=== PATIENT | female | born 1980 | race Two or more races ===

== ENCOUNTER 2018-03-14 07:09 | Emergency (ER) | payer OTHER ==
[~2018-03-14] VITALS: Ht 177.8 cm; Wt 118.8 kg
[~2018-03-14 07:09] MED LIST: COLACE100 MG PO; NAPROXEN500 MG PO; TYLENOL-CODEINE1 TAB PO
[2018-03-14] MEDS ORDERED: ZITHROMAX TRI-500 MG PO (10:14)
[2018-03-14] MEDS ORDERED: TUSSI PRES-B L120 M1 PO (10:14)
[2018-03-14] MEDS ORDERED: MEDROLPACK PO (10:14)
== END 2018-03-14 10:22 | disposition home or self-care (01) ==
LOC: ER 07:09
DX: B34.9 Viral infection, unspecified (principal)

== ENCOUNTER 2019-06-15 07:11 | Outpatient (CLI) | payer OTHER ==
[~2019-06-15 07:11] MED LIST changes: +MEDROLPACK PO; +TUSSI PRES-B L120 M1 PO; +ZITHROMAX TRI-500 MG PO
== END 2019-06-15 15:00 | disposition home or self-care (01) ==
LOC: LAB 07:11
DX: R09.02 Hypoxemia (principal)

== ENCOUNTER 2022-01-28 08:48 | Day surgery (SDC) | payer OTHER ==
[~2022-01-28 08:48] MED LIST changes: +SYNTHROID75 MCG PO
== END 2022-01-28 20:08 | disposition home or self-care (01) ==
LOC: CIR.AMB 08:48
PROVIDERS: ATTEND Obstetrics & Gynecology Gynecologic Oncology
DX: D39.11 Neoplasm of uncertain behavior of right ovary (principal); E03.9 Hypothyroidism, unspecified

== ENCOUNTER 2024-04-30 13:10 | Inpatient (IN) | payer OTHER ==
[~2024-04-30] VITALS: Ht 177.8 cm; Wt 81.2 kg
[2024-04-30 14:59] LABS: ALBUMIN 2.8 gm/dL (3.4-5.0); BILIRUBIN TOTAL 0.23 mg/dL (0.3-1.2); CREATININE SERUM 0.69 mg/dL (0.55-1.02); GFR 92.86; GLOBULINA 4.4 G/DL (2.4-3.5); POTASSIUM 3.29 mEq/L (3.5-5.1); TOTAL PROTEIN 7.2 gm/dL (6.4-8.2)
[2024-04-30 15:01] LABS: PH,URINE 5.5 (5.0-8.0); URINE APPEARANCE Cloudy; URINE BILIRRUBIN Negative (NEGATIVE); URINE BLOOD Large; URINE COLOR Yellow; URINE GLUCOSE Negative (NEGATIVE); URINE KETONE Trace (NEGATIVE); URINE LEUKOCYTE Small; URINE NITRATE Negative; URINE PROTEIN 30 (NEGATIVE)
[2024-04-30 15:05] LABS: URINE BACTERIA 2477.1 uL (0.0-1933); URINE EPITHELIAL CELLS 57.8 uL (0.0-38.8); URINE RBC 115.4 uL (0.0-20.8)
[2024-04-30 15:11] LABS: HEMATOCRIT 35.4 % (36.0-45.00); HEMOGLOBIN 12.1 g/dL (12.0-15.00); MEAN CELL VOLUME 91.8 fL (80.00-100.00); MEAN CORPUSCULAR HEMOGLOBIN 31.4 pg (27.00-32.0); MEAN CORPUSCULAR HGB CONC 34.2 g/dl (32.0-36.0); PLATELET COUNT 331 K/uL (150-450); RED BLOOD COUNT 3.85 M/uL (4.00-6.00); RED CELL DISTRIBUTION WIDTH 13.2 % (11.5-14.5)
[2024-04-30] MEDS ORDERED: CEFTRIAXONE SODIUM 2,000 MG VIAL IV STA (15:35)
[2024-04-30] MEDS ORDERED: 0.9 % SODIUM CHLORIDE 1,000 ML IV STA (15:37)
[2024-04-30] MEDS ORDERED: CEFTRIAXONE SODIUM 2,000 MG in 0.9 % SODIUM CHLORIDE 100 ML IV SCH (21:34)
[2024-04-30] MEDS ORDERED: FAMOTIDINE/PF 20 MG in 0.9 % SODIUM CHLORIDE 100 ML IV SCH (21:34)
[2024-04-30] MEDS ORDERED: KETOROLAC TROMETHAMINE 30 MG VIAL IV PRN (21:45)
[2024-04-30] MEDS ORDERED: 0.9 % SODIUM CHLORIDE 1,000 ML IV SCH (21:45)
[2024-04-30] MEDS ORDERED: TRAMADOL HCL 50 MG TABLET PO PRN (22:30)
[2024-04-30] MEDS ORDERED: MORPHINE SULFATE 4 MG/ML CARTRIDGE IV PRN (22:30)
[2024-05-01] MEDS ORDERED: FAMOtidine 20 MG TABLET PO SCH (09:00)
[2024-05-01] MEDS ORDERED: TAMSULOSIN HCL 0.4 MG CAP PO SCH (09:00)
[2024-05-01] MEDS ORDERED: LACTOBACILLUS ACIDOPHILUS 1 CAP CAP PO SCH (09:00)
[2024-05-02 07:52] LABS: PH,URINE 6.5 (5.0-8.0); URINE APPEARANCE Clear; URINE BILIRRUBIN Negative (NEGATIVE); URINE BLOOD Negative; URINE COLOR Yellow; URINE GLUCOSE Negative (NEGATIVE); URINE KETONE Negative (NEGATIVE); URINE LEUKOCYTE Negative; URINE NITRATE Negative; URINE PROTEIN Negative (NEGATIVE); URINE UROBILINOGEN 0.2 E.U./dl
[2024-05-02 07:55] LABS: URINE BACTERIA 12.5 uL (0.0-1933); URINE RBC 21.5 uL (0.0-20.8); URINE WBC 26.1 uL (0.0-23.2)
[2024-05-02 08:04] LABS: HEMOGLOBIN 10.6 g/dL (12.0-15.00); MEAN CELL VOLUME 90.2 fL (80.00-100.00); MEAN CORPUSCULAR HEMOGLOBIN 30.8 pg (27.00-32.0); MEAN CORPUSCULAR HGB CONC 34.1 g/dl (32.0-36.0); PLATELET COUNT 351 K/uL (150-450); RED BLOOD COUNT 3.44 M/uL (4.00-6.00); RED CELL DISTRIBUTION WIDTH 13.7 % (11.5-14.5)
[2024-05-02 08:15] LABS: URINE CAST 0.15 uL (0.0-1.40)
[2024-05-02 08:27] LABS: ALBUMIN 2.3 gm/dL (3.4-5.0); BILIRUBIN TOTAL 0.19 mg/dL (0.3-1.2); CALCIUM 8.4 mg/dL (8.5-10.1); CREATININE SERUM 0.56 mg/dL (0.55-1.02); GFR 118.15; GLOBULINA 3.3 G/DL (2.4-3.5); MAGNESIUM 1.8 mg/dL (1.8-2.4); PHOSPHOROUS 2.9 mg/dL (2.5-4.9); POTASSIUM 3.4 mEq/L (3.5-5.1); TOTAL PROTEIN 5.6 gm/dL (6.4-8.2)
[2024-05-02 08:31] LABS: C-REACTIVE PROTEIN 10.5 MG/DL (0.00-0.29)
[2024-05-03 21:05] LABS: chla t Negative (Negative); neiss Negative (Negative)
== END 2024-05-04 16:51 | disposition home or self-care (01) | DRG 690 ==
LOC: ER 13:12 → SEC-K 21:48 → MEDI 05-01 10:52
PROVIDERS: General Practice; Internal Medicine Infectious Disease; ADMIT Internal Medicine; ATTEND Internal Medicine
PROC: BW21ZZZ Computerized Tomography (CT Scan) of Abdomen and Pelvis (ICD-10-PCS; principal; 2024-04-30)
DX: N39.0 Urinary tract infection, site not specified (principal); N12 Tubulo-interstitial nephritis, not specified as acute or chronic; D72.829 Elevated white blood cell count, unspecified